=== PATIENT | female | born 1955 | race Caucasian/White ===

== ENCOUNTER → 2017-04-20 | Outpatient (CLI) | payer BC | END | disposition home or self-care (01) | LOC: PCVCIMAG 09:56 | DX: R09.89 Other specified symptoms and signs involving the circulatory and respiratory systems (principal); I35.0 Nonrheumatic aortic (valve) stenosis; G47.33 Obstructive sleep apnea (adult) (pediatric); R06.00 Dyspnea, unspecified; E83.59 Other disorders of calcium metabolism | CPT/HCPCS: 93325; 93351; 93880 ==

== ENCOUNTER → 2018-01-18 | Outpatient (CLI) | payer BC ==
--- NOTE | 2018-01-18 12:26 | PCVCIMAG ---
APPROVED REPORT Study performed: 01/18/2018 08:39:50 EXAM: Comprehensive 2D, Doppler, and color-flow Echocardiogram Patient Location: Echo lab Status: routine BSA: 1.74 HR: 62 bpmBP: 126/72 mmHg Other Information Study Quality: Adequate Risk Factors: Cardiac Risk Factors: Hyperlipidemia Indications Aortic Valve Disease Dyspnea Ankle Edema Elevated CA Score 2D Dimensions IVSd: 11.24 (7-11mm)LVOT Diam: 19.00 (18-24mm) LVDd: 42.94 mm PWd: 11.04 (7-11mm)Ascending Ao: 30.25 (22-36mm) LVDs: 30.75 (25-40mm) Left Atrium: 34.69 (27-40mm) Aortic Root: 23.98 mm LV Single Plane 4CH: 63.51 % LV Single Plane 2CH: 65.69 % Biplane EF: 64.2 % Volumes Left Atrial Volume (Systole) Single Plane 4CH: 57.30 mLSingle Plane 2CH: 44.09 mL LA ESV Index: 29.00 mL/m2 Aortic Valve AoV Peak Pilo.: 3.53 m/s AO Peak Gr.: 49.86 mmHgLVOT Max P.72 mmHg AO Mean Gr.: 27.99 mmHgLVOT Mean P.50 mmHg AO V2 Mean: 2.54 m/sLVOT Max V: 1.09 m/s AO V2 VTI: 90.54 cmLVOT Mean V: 0.74 m/s RAFFY (VTI): 0.85 [id number] V1 VTI: 26.86 cm ARFFY Vmax: 0.88 cm2 AI Vmax: 4.18 m/sSV (LVOT): 76.53 mL AI [place]: 2.71 m/s2 AI PHT: 451.30 ms Mitral Valve E/A Ratio: 1.2 MV Decel. Time: 217.32 ms MV E Max Pilo.: 0.99 m/s MV A Pilo.: 0.81 m/s IVRT: 65.74 ms TDI E/Lateral E': 9.90E/Medial E': 9.90 Medial E' Pilo.: 0.10 m/s Lateral E' Pilo.: 0.10 m/s Pulmonary Valve PV Peak Pilo.: 1.06 m/sPV Peak Gr.: 4.53 mmHg Pulmonary Vein P Vein S: 0.59 m/sP Vein A: 0.24 m/s P Vein D: 0.49 m/sP Vein A Dur.: 86.5 msec P Vein S/D Ratio: 1.20 Tricuspid Valve TR Peak Pilo.: 2.75 m/sRAP Estimate: 7.00 mmHg TR Peak Gr.: 30.15 mmHg PA Pressure: 37.00 mmHg Left Ventricle The left ventricle is normal size. There is normal LV segmental wall motion. Borderline concentric left ventricular hypertrophy. Left ventricular systolic function is normal. The left ventricular ejection fraction is within the normal range. LVEF is 65%. The left ventricular diastolic function is normal. Right Ventricle The right ventricle is normal size. The right ventricular systolic function is normal. Atria The left atrium size is normal. The right atrium size is normal. Aortic Valve Mild to moderate aortic regurgitation. Aortic valve leaflets mildly calcified but move well with accelerated flow beyond the leaflets. Peak gradient is 50 mmHg and the mean gradient is 28 mmHg. Aortic valve area measures 0.9 cm2. Mitral Valve The mitral valve is normal in structure. Moderate mitral regurgitation. No evidence of mitral valve stenosis. Tricuspid Valve The tricuspid valve is normal in structure. Trace tricuspid regurgitation. Pulmonary artery pressure is 37 mmHg. Pulmonic Valve The pulmonary valve is normal in structure. There is no pulmonic valvular regurgitation. Great Vessels The aortic root is normal in size. IVC is normal in size and collapses >50% with inspiration. Pericardium There is no pericardial effusion. <Conclusion> The left ventricle is normal size. LVEF is 65%. The left ventricular diastolic function is normal. The right ventricle is normal size. The left atrium size is normal. Mild to moderate aortic regurgitation. Aortic valve leaflets mildly calcified but move well with accelerated flow beyond the leaflets. Peak gradient is 50 mmHg and the mean gradient is 28 mmHg. Aortic valve area measures 0.9 cm2. Moderate mitral regurgitation. Trace tricuspid regurgitation. Pulmonary artery pressure is 37 mmHg. The aortic root is normal in size. There is no pericardial effusion.
== END | disposition home or self-care (01) ==
LOC: PCVCIMAG 08:34
PROVIDERS: ATTEND Internal Medicine Cardiovascular Disease
DX: I08.0 Rheumatic disorders of both mitral and aortic valves (principal); R06.00 Dyspnea, unspecified; M25.473 Effusion, unspecified ankle; R93.1 Abnormal findings on diagnostic imaging of heart and coronary circulation; E78.5 Hyperlipidemia, unspecified
CPT/HCPCS: 93306

== ENCOUNTER → 2019-01-06 | Outpatient (CLI) | payer BC ==
--- NOTE | 2019-01-07 08:44 | PCVCIMAG ---
APPROVED REPORT Study performed: 01/06/2019 12:48:09 EXAM: Comprehensive 2D, Doppler, and color-flow Echocardiogram Patient Location: Echo lab Status: routine BSA: 1.92 HR: 62 bpmBP: 144/84 mmHg Rhythm: NSR Other Information Study Quality: Adequate Risk Factors: Cardiac Risk Factors: Hyperlipidemia Indications aortic stenosis, obesity 2D Dimensions IVSd: 10.80 (7-11mm)LVOT Diam: 20.41 (18-24mm) LVDd: 46.46 mm PWd: 10.40 (7-11mm)Ascending Ao: 36.27 (22-36mm) LVDs: 31.67 (25-40mm) Left Atrium: 43.18 (27-40mm) Aortic Root: 36.52 mm LV Single Plane 4CH: 61.81 % LV Single Plane 2CH: 62.99 % Biplane EF: 62.1 % Volumes Left Atrial Volume (Systole) Single Plane 4CH: 77.10 mLSingle Plane 2CH: 86.45 mL LA ESV Index: 43.00 mL/m2 Aortic Valve AoV Peak Pilo.: 3.92 m/s AO Peak Gr.: 61.53 mmHgLVOT Max P.20 mmHg AO Mean Gr.: 33.20 mmHgLVOT Mean P.75 mmHg AO V2 Mean: 2.75 m/sLVOT Max V: 1.34 m/s AO V2 VTI: 98.89 cmLVOT Mean V: 0.91 m/s RAFFY (VTI): 1.12 [id number] V1 VTI: 33.93 cm RAFFY Vmax: 1.12 cm2 AI Vmax: 4.76 m/sSV (LVOT): 110.98 mL AI [place]: 3.21 m/s2 AI PHT: 432.00 ms Mitral Valve E/A Ratio: 1.2 MV Decel. Time: 252.29 ms MV E Max Pilo.: 0.71 m/s MV A Pilo.: 0.57 m/s IVRT: 72.66 ms Pulmonary Valve PV Peak Pilo.: 1.12 m/sPV Peak Gr.: 5.03 mmHg Pulmonary Vein P Vein S: 0.27 m/sP Vein A: 0.36 m/s P Vein D: 0.42 m/sP Vein A Dur.: 162.6 msec P Vein S/D Ratio: 0.64 Tricuspid Valve TR Peak Pilo.: 2.75 m/s TR Peak Gr.: 30.15 mmHg Left Ventricle The left ventricle is normal size. There is normal LV segmental wall motion. There is normal left ventricular wall thickness. Left ventricular systolic function is normal. The left ventricular ejection fraction is within the normal range. LVEF is 60-65%. The left ventricular diastolic function is normal. Right Ventricle The right ventricle is normal size. The right ventricular systolic function is normal. Atria Left atrium is moderately dilated. Right atrium is mildly dilated. Aortic Valve The aortic valve is moderately calcified, moderately stenotic, trileaflet. Moderate aortic regurgitation. Calculated aortic valve area is 1.1 cm2 with maximum pressure gradient of 62 mmHg and mean pressure gradient of 33 mmHg. Mitral Valve The mitral valve is normal in structure. Mild mitral regurgitation. No evidence of mitral valve stenosis. Tricuspid Valve The tricuspid valve is normal in structure. Moderate tricuspid regurgitation with PAP of 40 mmHg. Pulmonic Valve The pulmonary valve is normal in structure. Trace pulmonic regurgitation. Great Vessels The aortic root is normal in size. IVC is normal in size and collapses >50% with inspiration. Pericardium There is no pericardial effusion. There is no pleural effusion. <Conclusion> Left ventricular systolic function is normal. There is normal LV segmental wall motion. LVEF is 60-65%. Normal diastolic function Left atrium is moderately dilated. The aortic valve is moderately calcified, moderately stenotic, trileaflet. Calculated aortic valve area is 1.1 cm2 with maximum pressure gradient of 62 mmHg and mean pressure gradient of 33 mmHg. Moderate aortic regurgitation. The mitral valve is normal in structure. Mild mitral regurgitation. Moderate tricuspid regurgitation with pulmonary artery pressure of 40 mmHg. There is no pericardial effusion.
== END | disposition home or self-care (01) ==
LOC: PCVCIMAG 12:37
PROVIDERS: ATTEND Internal Medicine Cardiovascular Disease
DX: I08.3 Combined rheumatic disorders of mitral, aortic and tricuspid valves (principal); E66.9 Obesity, unspecified; E78.00 Pure hypercholesterolemia, unspecified
CPT/HCPCS: 93017; 93306